=== PATIENT | male | born 1960 | race Native Hawaiian/Other Pacific Islander ===

== ENCOUNTER 2016-08-11 08:38 | Emergency (ER) | payer MEDICAID, OTHER ==
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
--- NOTE | 2016-08-11 10:35 | RAD ---
PROCEDURE: Left shoulder dated 08/11/2016 HISTORY: Fall COMPARISON: Correlation made with concurrent radiographs of the left scapula as well as chest and left rib series. FINDINGS: BONES: Suspect nondisplaced fracture along the lateral margin of the acromion. No evidence of dislocation. . JOINTS: The acromioclavicular and glenohumeral joint spaces intact. SOFT TISSUES: Normal. OTHER FINDINGS: None. IMPRESSION: Suspect nondisplaced fracture of the lateral margin of the scapula. . The acromioclavicular and glenohumeral joint spaces are intact.
--- NOTE | 2016-08-11 10:47 | RAD ---
PROCEDURE: Left scapula dated the 08/11/2016. . HISTORY: Fall COMPARISON: Correlation made with concurrent radiographs of the left shoulder and left ribs TECHNIQUE: Three views of the left shoulder girdle - scapula be performed. FINDINGS: . The current study reveals a fracture of the midshaft fracture left clavicle with apparent overlap fragments. There appears to be a subtle nondisplaced fracture of the lateral aspect of the acromion is well. No evidence of dislocation. . The acromioclavicular glenohumeral intact. IMPRESSION: Midshaft fracture left clavicle with apparent overlap fragments. There also appears to be a nondisplaced fracture of the lateral aspect of the acromion however the joint spaces are intact.
--- NOTE | 2016-08-11 10:55 | RAD ---
PROCEDURE: Pelvis 08/11/2016 HISTORY: Status post fall COMPARISON: No prior study available for comparison FINDINGS: The current study reveals what could represent a minimally displaced fracture avulsion type fracture localized to the superior margin of the greater trochanter left femur. The remaining osseous structures intact. Both femoral heads are appropriately located within the respective acetabula. Degenerative changes both hips with spurring along the superolateral margins of the acetabular roofs left greater than right. . Impression: There appears to be a localized avulsion type fracture superior margin greater trochanter left hip. DJD as above.
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
[2016-08-11 14:59] LABS: BASO % 0.5 % (0.0-2.0); EOS % 0.2 % (0.0-4.0); HEMATOCRIT 43.6 % (35.0-51.0); LYMPH # 1.1 K/uL (1.0-4.3); LYMPH % 11.4 % (20.0-40.0); MEAN CELL VOLUME 93.1 fl (80.0-94.0); MEAN CORPUSCULAR HEMOGLOBIN 32.5 pg (27.0-31.0); MEAN CORPUSCULAR HGB CONC 34.9 g/dL (33.0-37.0); MEAN PLATELET VOLUME 9.1 fl (7.2-11.7); MONO # 0.9 K/uL (0.0-0.8); MONO % 9.8 % (0.0-10.0); NEUT # 7.3 K/uL (1.8-7.0); NEUT % 78.1 % (50.0-75.0); WHITE BLOOD COUNT 9.3 K/uL (4.8-10.8)
[2016-08-11 15:08] LABS: ALB/GLOB RATIO 1.6 (1.0-2.1); ALKALINE PHOSPHATASE 55 U/L (38-126); ALT/SGPT 41 U/L (21-72); AST/SGOT 40 U/L (17-59); BILIRUBIN,TOTAL 1.3 mg/dl (0.2-1.3); BLOOD UREA NITROGEN 20 mg/dl (9-20); CALCIUM 9.2 mg/dL (8.4-10.2); CARBON DIOXIDE 25 mmol/L (22-30); CHLORIDE 99 mmol/L (98-107); GFR AFRICAN-AMERICAN > 60; GLUCOSE,RANDOM 112 mg/dL (75-110); POTASSIUM 3.9 MMOL/L (3.6-5.0); SODIUM 136 mmol/l (132-148); TOTAL PROTEIN 7.7 G/DL (6.3-8.2)
--- NOTE | 2016-08-11 15:58 | RAD ---
PROCEDURE: Radiographs of the Chest and Left Ribs. HISTORY: Fall COMPARISON: Note that this examination was read in conjunction with subsequent CT scan of the left shoulder which image the left ribs. TECHNIQUE: Frontal radiograph of the chest and multiple oblique radiographs of the left ribs were obtained. FINDINGS: LEFT RIBS: There appear to be fractures of the left 4th, 5th and possibly 6th lateral ribs. LUNGS: Mild left basilar atelectasis. PLEURA: No pneumothorax or pleural fluid. CARDIOVASCULAR: Normal sized heart. No pulmonary vascular congestion. OTHER FINDINGS: In addition, there is a fracture of the left clavicle with overlap fragments. . Fractures of the left posterior 3rd 4th and 5th ribs less well seen on this study compared to high-resolution CT scan of the left upper extremity which included the left upper ribs. IMPRESSION: Fractures of the left posterior 3rd, 4th and 5th lateral ribs less well seen on this study compared to on subsequent CT scan left shoulder. There is also fracture of the left clavicle. Mild left basilar atelectasis.
--- NOTE | 2016-08-11 16:00 | RAD ---
PROCEDURE: Cervical spine 08/11/2016 Multiple views of the cervical spine performed. Note that the examination is somewhat limited due to incomplete visualization of the C7 segment in the lateral projection no C7 is visible on oblique views. In addition, the odontoid is partially obscured by overlying incisor teeth and occiput in the open-mouth projection. HISTORY: Status post fall with pain. COMPARISON: None. FINDINGS: BONES: Current study reveals no evidence of acute compression fractures no retropulsed fragments. DISC SPACES: Normal. Mild multilevel disc space narrowing more so along the along the posterior this margins though most of the notably affecting the C5-C6 and C4-C5 levels so far as can be seen. Multilevel bilateral exit foraminal narrowing left greater than right SOFT TISSUES: Prevertebral soft tissues unremarkable. OTHER FINDINGS: Fracture of the left clavicle. Fractures of the left posterior 3rd 4th and 5th ribs less well seen on this exam compared to subsequent CT scan of the left shoulder which image the left upper ribs. IMPRESSION: Limited study, as mentioned above, demonstrating no evidence of acute cervical spine fracture so far as can be seen. . Mild multilevel degenerative spondylosis Fracture of the left clavicle. Fractures of the left posterior 3rd 4th and 5th ribs less well seen on this exam compared to subsequent CT scan of the left shoulder which image the left upper ribs.
[2016-08-11 19:10] VITALS: BP 127/81; PULSE 63; RESP 18; TEMP 98.6
[2016-08-12 15:58] VITALS: O2SAT 100
== END 2016-08-11 20:00 | disposition short-term general hospital (02) ==
LOC: H.ER 08:38
DX: S42.002A Fracture of unspecified part of left clavicle, initial encounter for closed fracture (principal); S22.49XA Multiple fractures of ribs, unspecified side, initial encounter for closed fracture; V19.3XXA Pedal cyclist (driver) (passenger) injured in unspecified nontraffic accident, initial encounter; Y93.9 Activity, unspecified